=== PATIENT | female | born 1955 | race Caucasian/White ===

== ENCOUNTER 2017-07-08 18:18 | Inpatient (IN) | payer BC ==
[2017-07-08] MEDS ORDERED: SODIUM CHLORIDE 0.9% FLUSH 10 ML FLUSH IVF (18:45)
[2017-07-08 19:12] LABS: AUTOMATED NEUTROPHIL # 9.3 TH/MM3 (1.8-7.7); BASOPHIL # 0.6 TH/MM3 (0-0.2); BASOPHIL % 4.6 % (0.0-2.0); EOSINOPHIL # 0.3 TH/MM3 (0-0.4); EOSINOPHIL % 2.5 % (0.0-4.0); HEMATOCRIT 37.7 % (35.0-46.0); HEMO FLAGS DIFF FINAL; HEMOGLOBIN 12.5 GM/DL (11.6-15.3); LYMPH % 13.6 % (9.0-44.0); LYMPHOCYTE # 1.7 TH/MM3 (1.0-4.8); MEAN CELL VOLUME 91.6 FL (80.0-100.0); MEAN CORPUSCULAR HEMOGLOBIN 30.3 PG (27.0-34.0); MEAN CORPUSCULAR HGB CONC 33.1 % (32.0-36.0); MEAN PLATELET VOLUME 8.2 FL (7.0-11.0); MONO % 7.1 % (0.0-8.0); MONOCYTE # 0.9 TH/MM3 (0-0.9); NEUT % 72.2 % (16.0-70.0); PLATELET COUNT 308 TH/MM3 (150-450); RED BLOOD COUNT 4.12 MIL/MM3 (4.00-5.30); RED CELL DISTRIBUTION WIDTH 13.9 % (11.6-17.2); WHITE BLOOD COUNT 12.8 TH/MM3 (4.0-11.0)
[2017-07-08 19:23] LABS: CHLORIDE 106 MEQ/L (98-107); SODIUM (NA) 138 MEQ/L (136-145)
[2017-07-08 19:26] LABS: CALCIUM 8.8 MG/DL (8.5-10.1)
[2017-07-08 19:27] LABS: ALBUMIN 2.9 GM/DL (3.4-5.0); ANION GAP 7 MEQ/L (5-15); BICARBONATE 25.5 MEQ/L (21.0-32.0); BLOOD UREA NITROGEN 23 MG/DL (7-18); GLUCOSE,RANDOM 91 MG/DL (74-106); MAGNESIUM 2.1 MG/DL (1.5-2.5)
[2017-07-08 19:30] LABS: ALT (GPT) 29 U/L (10-53); AST (GOT) 47 U/L (15-37); CREATININE 0.95 MG/DL (0.50-1.00); GLOMERULAR FILTRATION RATE 60 ML/MIN (>89)
[2017-07-08 19:32] LABS: TOTAL BILIRUBIN ADULT 0.5 MG/DL (0.2-1.0); TOTAL PROTEIN 7.2 GM/DL (6.4-8.2)
[2017-07-08 19:33] LABS: ALKALINE PHOSPHATASE 102 U/L (45-117); CREATINE KINASE 362 U/L (26-192)
[2017-07-08 19:35] LABS: POTASSIUM 4.2 MEQ/L (3.5-5.1); TROPONIN I LESS THAN 0.02 NG/ML (0.02-0.05)
[2017-07-08] MEDS: NYSTATIN 100,000 U/GM PWD 15 GM BTL TOPICAL ×2 (19:42→22:48)
[2017-07-08] MEDS: SODIUM CHLOR 0.9% 1000 ML INJ 1,000 ML IV (19:42)
[2017-07-08 19:47] LABS: CKMB % 1.1 % (0.0-4.0)
[2017-07-08] MEDS ORDERED: SODIUM CHLORIDE 0.9% FLUSH 10 ML FLUSH IV FLUSH (20:30)
[2017-07-08] MEDS ORDERED: NALOXONE HCL 0.4 MG/ML AMP IV PUSH (20:30)
[2017-07-08] MEDS: SODIUM CHLORIDE 0.9% FLUSH 10 ML FLUSH IV FLUSH (21:00)
[2017-07-09 01:48] LABS: CREATINE KINASE 274 U/L (26-192)
[2017-07-09 01:49] LABS: TROPONIN I LESS THAN 0.02 NG/ML (0.02-0.05)
[2017-07-09 02:01] LABS: CKMB 3.8 NG/ML (0.5-3.6); CKMB % 1.4 % (0.0-4.0)
[2017-07-09] MEDS: NYSTATIN 100,000 U/GM PWD 15 GM BTL TOPICAL ×3 (06:09→21:32)
[2017-07-09 06:51] LABS: CHLORIDE 107 MEQ/L (98-107); POTASSIUM 3.8 MEQ/L (3.5-5.1); SODIUM (NA) 141 MEQ/L (136-145)
[2017-07-09 06:54] LABS: CALCIUM 8.4 MG/DL (8.5-10.1)
[2017-07-09 06:55] LABS: ANION GAP 5 MEQ/L (5-15); BICARBONATE 29.1 MEQ/L (21.0-32.0); BLOOD UREA NITROGEN 19 MG/DL (7-18); GLUCOSE,RANDOM 103 MG/DL (74-106)
[2017-07-09 06:58] LABS: CREATININE 0.84 MG/DL (0.50-1.00); GLOMERULAR FILTRATION RATE 69 ML/MIN (>89)
[2017-07-09 06:59] LABS: AUTOMATED NEUTROPHIL # 9.1 TH/MM3 (1.8-7.7); BASOPHIL % 0.3 % (0.0-2.0); EOSINOPHIL # 0.3 TH/MM3 (0-0.4); EOSINOPHIL % 2.3 % (0.0-4.0); HEMATOCRIT 38.8 % (35.0-46.0); HEMOGLOBIN 12.2 GM/DL (11.6-15.3); LYMPH % 14.6 % (9.0-44.0); LYMPHOCYTE # 1.7 TH/MM3 (1.0-4.8); MEAN CELL VOLUME 94.7 FL (80.0-100.0); MEAN CORPUSCULAR HEMOGLOBIN 29.7 PG (27.0-34.0); MEAN CORPUSCULAR HGB CONC 31.4 % (32.0-36.0); MEAN PLATELET VOLUME 8.2 FL (7.0-11.0); MONO % 7.2 % (0.0-8.0); MONOCYTE # 0.9 TH/MM3 (0-0.9); NEUT % 75.6 % (16.0-70.0); PLATELET COUNT 315 TH/MM3 (150-450); RED CELL DISTRIBUTION WIDTH 14.2 % (11.6-17.2)
[2017-07-09 07:00] LABS: HEMO FLAGS DIFF FINAL
[2017-07-09 08:00] LABS: CREATINE KINASE 264 U/L (26-192)
[2017-07-09 08:00] LABS: TROPONIN I LESS THAN 0.02 NG/ML (0.02-0.05)
[2017-07-09 08:19] LABS: CKMB 3.7 NG/ML (0.5-3.6); CKMB % 1.4 % (0.0-4.0)
[2017-07-09] MEDS: SODIUM CHLORIDE 0.9% FLUSH 10 ML FLUSH IV FLUSH ×2 (09:00→21:00)
[2017-07-09] MEDS: INFLUENZA VIRUS VACCINE (QUADRIVALENT) 0.5 ML SYR IM (10:13)
[2017-07-09 12:25] LABS: BLOOD GAS BASE EXCESS 1.1 mmol/L (-2-2); BLOOD GAS CARBOXYHEMOGLOBIN 2.4 % (0-4); BLOOD GAS HCO3 26 mmol/L (22-26); BLOOD GAS METHEMOGLOBIN 1.1 % (0-2); BLOOD GAS O2 HGB SATURATION 83 % (90-100); BLOOD GAS OXYGEN CONTENT 13.5 Vol % (12.0-20.0); BLOOD GAS PCO2 48 mmHG (38-42); BLOOD GAS PO2 52 mmHG (61-120); BLOOD GAS TOTAL HGB 11.6 G/DL (12.0-16.0); TEMP CORR TO 98.6
[2017-07-09 12:26] LABS: DRAW SITE LT RADIAL; FIO2 21 %; NUMBER OF ARTERIAL PUNCTURES 1; OXYGEN DEVICE ROOM AIR; STAT NO; ULNAR PULSE PRESENT
[2017-07-09 12:27] LABS: CRITICAL VALUE YES
[2017-07-09] MEDS: SODIUM CHLOR 0.9% 250 ML INJ 250 ML IV (14:15)
[2017-07-09] MEDS: SODIUM CHLOR 0.9% 1000 ML INJ 1,000 ML IV (15:45)
[2017-07-09] MEDS: REMOVE OLD PATCH T-DERMAL (15:45)
[2017-07-09 16:51] LABS: BILIRUBIN, URINE NEG (NEG); BLOOD, URINE MOD (NEG); GLUCOSE,URINE NEG (NEG); KETONE, URINE 15 mg/dL (NEG); NITRITE,URINE POS (NEG); URINE COLOR YELLOW (YELLW/STRAW); URINE LEUKOCYTE ESTERASE LARGE (NEG)
[2017-07-09 16:52] LABS: BACTERIA, URINE MOD /hpf; RENAL EPITHELIAL CELLS 0-5 /hpf; SQUAMOUS EPITHELIAL CELL URINE 0-5 /hpf (0-5); WBC, URINE INNUM /hpf (0-5); WHITE BLOOD CELL CLUMPS MOD
[2017-07-09 16:53] LABS: COMMENT (UR) CATH-CULTURE IND; CULTURE IF INDICATED CATH CULTURE IND
[2017-07-09] MEDS: NICOTINE 21 MG/24 HR PATCH T-DERMAL (16:58)
[2017-07-09] MEDS: LEVOFLOXACIN 750 MG PREMIX INJ 150 ML IV (16:58)
[2017-07-09] MEDS: LACTOBACILLUS ACIDOPHILUS TAB PO (17:00)
[2017-07-09] MEDS: HEPARIN SODIUM - SQ 10,000 UNITS/ML VIAL SQ ×2 (17:01→21:31)
[2017-07-09] MEDS: traZODone HCL 100 MG TAB PO (21:31)
[2017-07-10] MEDS: HEPARIN SODIUM - SQ 10,000 UNITS/ML VIAL SQ ×3 (05:20→21:12)
[2017-07-10] MEDS: NYSTATIN 100,000 U/GM PWD 15 GM BTL TOPICAL ×3 (05:20→21:15)
[2017-07-10] MEDS: SODIUM CHLORIDE 0.9% FLUSH 10 ML FLUSH IV FLUSH ×2 (07:25→21:09)
[2017-07-10] MEDS: SODIUM CHLOR 0.9% 1000 ML INJ 1,000 ML IV (07:30)
[2017-07-10 07:43] LABS: CHLORIDE 109 MEQ/L (98-107); POTASSIUM 3.8 MEQ/L (3.5-5.1); SODIUM (NA) 142 MEQ/L (136-145)
[2017-07-10 07:53] LABS: CALCIUM 8.1 MG/DL (8.5-10.1)
[2017-07-10 07:54] LABS: ALBUMIN 2.6 GM/DL (3.4-5.0); ANION GAP 7 MEQ/L (5-15); BICARBONATE 26.1 MEQ/L (21.0-32.0); BLOOD UREA NITROGEN 15 MG/DL (7-18); GLUCOSE,RANDOM 109 MG/DL (74-106); MAGNESIUM 2.2 MG/DL (1.5-2.5)
[2017-07-10 07:57] LABS: ALT (GPT) 23 U/L (10-53); AST (GOT) 14 U/L (15-37); CREATININE 0.76 MG/DL (0.50-1.00); GLOMERULAR FILTRATION RATE 78 ML/MIN (>89); PHOSPHORUS 3.5 MG/DL (2.5-4.9)
[2017-07-10 07:58] LABS: TOTAL BILIRUBIN ADULT 0.4 MG/DL (0.2-1.0)
[2017-07-10 07:59] LABS: TOTAL PROTEIN 6.8 GM/DL (6.4-8.2)
[2017-07-10 08:00] LABS: ALKALINE PHOSPHATASE 97 U/L (45-117)
[2017-07-10 08:51] LABS: AUTOMATED NEUTROPHIL # 8.1 TH/MM3 (1.8-7.7); BASOPHIL # 0.3 TH/MM3 (0-0.2); BASOPHIL % 2.5 % (0.0-2.0); EOSINOPHIL # 0.2 TH/MM3 (0-0.4); EOSINOPHIL % 2.2 % (0.0-4.0); HEMATOCRIT 35.1 % (35.0-46.0); HEMO FLAGS DIFF FINAL; HEMOGLOBIN 11.1 GM/DL (11.6-15.3); LYMPH % 14.6 % (9.0-44.0); LYMPHOCYTE # 1.6 TH/MM3 (1.0-4.8); MEAN CELL VOLUME 93.2 FL (80.0-100.0); MEAN CORPUSCULAR HEMOGLOBIN 29.5 PG (27.0-34.0); MEAN CORPUSCULAR HGB CONC 31.7 % (32.0-36.0); MONO % 5.4 % (0.0-8.0); MONOCYTE # 0.6 TH/MM3 (0-0.9); NEUT % 75.3 % (16.0-70.0); PLATELET COUNT 270 TH/MM3 (150-450); RED BLOOD COUNT 3.77 MIL/MM3 (4.00-5.30); RED CELL DISTRIBUTION WIDTH 13.8 % (11.6-17.2); WHITE BLOOD COUNT 10.8 TH/MM3 (4.0-11.0)
[2017-07-10] MEDS: REMOVE OLD PATCH T-DERMAL (09:00)
[2017-07-10] MEDS: LACTOBACILLUS ACIDOPHILUS TAB PO ×3 (09:29→16:29)
[2017-07-10] MEDS: NICOTINE 21 MG/24 HR PATCH T-DERMAL (09:29)
[2017-07-10] MEDS: CHOLECALCIFEROL (VIT D3) 5000 UNIT CAP PO (09:29)
[2017-07-10] MEDS: FUROSEMIDE 40 MG/4 ML VIAL IV PUSH (12:46)
[2017-07-10] MEDS: LEVOFLOXACIN 750 MG PREMIX INJ 150 ML IV (16:28)
[2017-07-10] MEDS: traZODone HCL 100 MG TAB PO (21:11)
[2017-07-11] MEDS: HEPARIN SODIUM - SQ 10,000 UNITS/ML VIAL SQ ×3 (06:03→21:55)
[2017-07-11] MEDS: NYSTATIN 100,000 U/GM PWD 15 GM BTL TOPICAL ×3 (06:03→21:57)
[2017-07-11] MEDS: SPIRONOLACTONE 50 MG TAB PO ×2 (08:45→17:32)
[2017-07-11] MEDS: FUROSEMIDE 20 MG TAB PO (08:45)
[2017-07-11] MEDS: amLODIPine BESYLATE 5 MG TAB PO (08:46)
[2017-07-11] MEDS: LACTOBACILLUS ACIDOPHILUS TAB PO ×3 (08:46→17:32)
[2017-07-11] MEDS: METOPROLOL SUCCINATE 50 MG EXTENDED RELEASE TAB PO (08:46)
[2017-07-11] MEDS: CHOLECALCIFEROL (VIT D3) 5000 UNIT CAP PO (08:46)
[2017-07-11] MEDS: LISINOPRIL 20 MG TAB PO (08:46)
[2017-07-11] MEDS: NICOTINE 21 MG/24 HR PATCH T-DERMAL (08:47)
[2017-07-11] MEDS: SODIUM CHLORIDE 0.9% FLUSH 10 ML FLUSH IV FLUSH ×2 (08:47→21:57)
[2017-07-11] MEDS: REMOVE OLD PATCH T-DERMAL (08:47)
[2017-07-11] MEDS: LEVOFLOXACIN 750 MG PREMIX INJ 150 ML IV (12:47)
[2017-07-11] MEDS: BACITRACIN TOP OINT 15 GM TUBE TOPICAL ×2 (12:47→21:57)
[2017-07-11] MEDS: traZODone HCL 100 MG TAB PO (21:56)
[2017-07-12] MEDS: NYSTATIN 100,000 U/GM PWD 15 GM BTL TOPICAL ×3 (05:41→21:09)
[2017-07-12] MEDS: HEPARIN SODIUM - SQ 10,000 UNITS/ML VIAL SQ ×3 (05:41→21:05)
[2017-07-12] MEDS: amLODIPine BESYLATE 5 MG TAB PO (08:47)
[2017-07-12] MEDS: LISINOPRIL 20 MG TAB PO (08:47)
[2017-07-12] MEDS: LACTOBACILLUS ACIDOPHILUS TAB PO ×3 (08:47→16:53)
[2017-07-12] MEDS: SODIUM CHLORIDE 0.9% FLUSH 10 ML FLUSH IV FLUSH ×2 (08:48→21:05)
[2017-07-12] MEDS: CHOLECALCIFEROL (VIT D3) 5000 UNIT CAP PO (08:48)
[2017-07-12] MEDS: NICOTINE 21 MG/24 HR PATCH T-DERMAL (08:48)
[2017-07-12] MEDS: FUROSEMIDE 20 MG TAB PO (08:48)
[2017-07-12] MEDS: METOPROLOL SUCCINATE 50 MG EXTENDED RELEASE TAB PO (08:48)
[2017-07-12] MEDS: SPIRONOLACTONE 50 MG TAB PO ×2 (09:00→16:53)
[2017-07-12] MEDS: REMOVE OLD PATCH T-DERMAL (09:00)
[2017-07-12] MEDS: BACITRACIN TOP OINT 15 GM TUBE TOPICAL ×2 (09:00→21:08)
[2017-07-12] MEDS: LEVOFLOXACIN 750 MG TAB PO (11:55)
[2017-07-12] MEDS: traZODone HCL 100 MG TAB PO (21:05)
[2017-07-13] MEDS: HEPARIN SODIUM - SQ 10,000 UNITS/ML VIAL SQ (05:30)
[2017-07-13] MEDS: NYSTATIN 100,000 U/GM PWD 15 GM BTL TOPICAL (06:07)
[2017-07-13] MEDS: BACITRACIN TOP OINT 15 GM TUBE TOPICAL (09:00)
[2017-07-13] MEDS: REMOVE OLD PATCH T-DERMAL ×2 (09:00→10:41)
[2017-07-13] MEDS: NICOTINE 21 MG/24 HR PATCH T-DERMAL (10:02)
[2017-07-13] MEDS: SPIRONOLACTONE 50 MG TAB PO (10:02)
[2017-07-13] MEDS: FUROSEMIDE 20 MG TAB PO ×2 (10:02→10:31)
[2017-07-13] MEDS: LACTOBACILLUS ACIDOPHILUS TAB PO (10:02)
[2017-07-13] MEDS: CHOLECALCIFEROL (VIT D3) 5000 UNIT CAP PO ×2 (10:02→10:30)
[2017-07-13] MEDS: amLODIPine BESYLATE 5 MG TAB PO ×2 (10:03→10:30)
[2017-07-13] MEDS: LISINOPRIL 20 MG TAB PO ×2 (10:03→10:31)
[2017-07-13] MEDS: METOPROLOL SUCCINATE 50 MG EXTENDED RELEASE TAB PO ×2 (10:03→10:31)
[2017-07-13] MEDS: DOXYCYCLINE HYCLATE 100 MG CAP PO (10:28)
[2017-07-13] MEDS: SODIUM CHLORIDE 0.9% FLUSH 10 ML FLUSH IV FLUSH (10:34)
[2017-07-13] MEDS: LEVOFLOXACIN 750 MG TAB PO (12:02)
== END 2017-07-13 12:14 | DRG 871 ==
LOC: PHEFT 18:18 → PHEDA 20:28 → PH3B 21:39
DX: A41.9 Sepsis, unspecified organism (principal); G93.41 Metabolic encephalopathy; M62.82 Rhabdomyolysis; S22.42XA Multiple fractures of ribs, left side, initial encounter for closed fracture; Z68.43 Body mass index [BMI] 50.0-59.9, adult; I11.9 Hypertensive heart disease without heart failure; N39.0 Urinary tract infection, site not specified; L03.115 Cellulitis of right lower limb; G47.30 Sleep apnea, unspecified; E86.0 Dehydration; L30.4 Erythema intertrigo; I89.0 Lymphedema, not elsewhere classified; E66.9 Obesity, unspecified; I87.8 Other specified disorders of veins; R55 Syncope and collapse; R29.6 Repeated falls; F17.210 Nicotine dependence, cigarettes, uncomplicated; F32.9 Major depressive disorder, single episode, unspecified; W19.XXXA Unspecified fall, initial encounter; Z23 Encounter for immunization
CPT/HCPCS: 36600; 70450; 71045; 80048; 80053; 81001; 82550; 82552; 82805; 83735; 84100; 84443; 84484; 85025; 87077; 87086; 87186; 90686; 93005; 93306; 93880; 93970; 94150; 97110-GP; 97162-GP; 97530-GP; 99285-25